=== PATIENT | male | born 1980 | race Caucasian/White ===

== ENCOUNTER → 2020-03-28 | Outpatient (CLI) | payer MEDICAID ==
[~2020-03-28] MED LIST: BACITRACIN 50,000 UNITS/VIAL ONE; DEXAMETHASONE 4MG/ML 1ML VIAL ONE; FENTANYL CITRATE/PF 50MCG/ML 2ML VIAL ONE; FISH GT; GLYCOPYRROLATE 0.2 MG/ML 2ML VIAL ONE; HYDROMORPHONE HCL/PF 2MG/ML (OR) ONE; IBUP-2030 PO; LISI-604 PO; MIDAZOLAM HCL 2 MG/2 ML VIAL ONE; MULT-1116 MT; NEOSTIGMINE METHYLSULFATE 1MG/ML 10 ML VIAL ONE; ONDANSETRON HCL 4MG/2ML INJ ONE; PROPOFOL 200MG/20ML VIAL IV ONE; ROCURONIUM BROMIDE 10MG/ML VIAL 5ML IV ONE; THROMBIN (BOVINE) 5000 UNITS/VIAL TOP ONE
== END | disposition home or self-care (01) ==
LOC: LAB 12:26
PROVIDERS: ATTEND Neurological Surgery
DX: Z20.822 Contact with and (suspected) exposure to COVID-19 (principal)
CPT/HCPCS: 87426

== ENCOUNTER 2020-03-31 05:30 | Inpatient (IN) | payer MEDICARE, MEDICAID ==
[2020-03-31] VITALS (57 sets, daily range): BP systolic 110–144; BP diastolic 31–89
[~2020-03-31] VITALS: Ht 205.7 cm; Wt 105.7 kg
[2020-03-31] MEDS: LACTATED RINGERS 1,000 ML IV SCH ×2 (06:35→06:36)
[2020-03-31 06:40] LABS: CLARITY URINE CLEAR (CLEAR); COLOR URINE YELLOW (YELLOW); KETONES URINE NEGATIVE (NEGATIVE); LEUKOCYTE ESTERASE URINE NEGATIVE (NEGATIVE); NITRITE URINE NEGATIVE (NEGATIVE); OCCULT BLOOD URINE NEGATIVE (NEGATIVE); PH URINE 6.5 (4.5-8.0); PROTEIN URINE NEGATIVE (NEGATIVE); SPECIFIC GRAVITY URINE 1.013 (1.005-1.030); UROBILINOGEN URINE 0.2 E.U./dL (0.2-1.0)
[2020-03-31] MEDS ORDERED: IBUP-2030 PO (06:40)
[2020-03-31] MEDS ORDERED: FISH GT (06:40)
[2020-03-31] MEDS ORDERED: MULT-1116 MT (06:40)
[2020-03-31] MEDS ORDERED: LISI20TA31 PO (06:40)
[2020-03-31 06:48] LABS: BASOPHILS % 0.4 % (0.0-2.0); HEMATOCRIT. 43.1 % (42.0-52.0); HEMOGLOBIN. 14.7 g/dL (14.0-18.0); LYMPHOCYTES % 39.5 % (20.0-50.0); MEAN CORPUSCULAR HEMOGLOBIN 30.1 pg (28.0-32.0); MEAN CORPUSCULAR VOLUME 88.6 fL (80.0-94.0); MEAN PLATELET VOLUME 8.7 fl (7.4-10.4); MONOCYTES % 8.2 % (2.0-8.0); NEUTROPHILS % 50.9 % (40.0-76.0); PLATELET 277 x1000/uL (130-400); RED BLOOD CELL COUNT 4.87 mill/uL (4.7-6.1); RED CELL DISTRIBUTION WIDTH 12.5 % (11.6-14.6)
[2020-03-31 06:49] LABS: CHLORIDE 107 mEq/L (98-107)
[2020-03-31 07:14] LABS: PARTIAL THROMBOPLASTIN TIME 28.2 sec (23.4-31.0); PROTHROMBIN TIME 10.8 sec (9.6-11.0)
[2020-03-31] MEDS ORDERED: HYDROMORPHONE HCL/PF 2MG/ML CPJ IV PRN (07:30)
[2020-03-31] MEDS ORDERED: MEPERIDINE HCL/PF 25MG/ML CPJ IV PRN (07:30)
[2020-03-31] MEDS ORDERED: MORPHINE SULFATE 4 MG/ML CPJ (NOT FOR IM USE) IV PRN ×2 (07:30→20:45)
[2020-03-31] MEDS ORDERED: ONDANSETRON HCL 4MG/2ML INJ IV PRN ×2 (07:30)
[2020-03-31] MEDS ORDERED: LABETALOL 5MG/ML SYR 20 MG/4 ML SYRINGE IV PRN (07:30)
[2020-03-31] MEDS: DEXT 5%/LACTATED RINGERS 1,000 ML IV SCH ×2 (09:42→18:48)
[2020-03-31] MEDS ORDERED: HYDROMORPHONE PCA 10MG/50ML IV PRN (09:45)
[2020-03-31] MEDS ORDERED: ONDANSETRON INJ IV PRN (09:45)
[2020-03-31] MEDS ORDERED: NALOXONE INJ IV PRN (09:45)
[2020-03-31] MEDS: DEXAMETHASONE 4MG/ML 1ML VIAL IV SCH ×2 (11:38→17:00)
[2020-03-31] MEDS: CEFAZOLIN 1000MG PREMIX 50 ML IV SCH ×2 (13:28→21:38)
[2020-03-31] MEDS ORDERED: CEFAZOLIN SODIUM 1000MG/VIAL IV SCH (14:00)
[2020-03-31] MEDS: NICARDIPINE 100 MG in SODIUM CHLORIDE 0.9% 60 ML IV PRN (14:36)
[2020-03-31] MEDS ORDERED: DIAZEPAM 2 MG TABLET PO NR (15:30)
[2020-03-31] MEDS ORDERED: MORPHINE SULFATE 2 MG/ML CPJ (NOT FOR IM USE) IV NR (20:45)
[2020-03-31] MEDS ORDERED: LORAZEPAM 2MG/ML CPJ IV PRN (23:15)
[2020-04-01] VITALS (90 sets, daily range): BP systolic 99–145; BP diastolic 52–91
[2020-04-01 00:18] LABS: CHLORIDE 106 mEq/L (98-107)
[2020-04-01] MEDS: DEXAMETHASONE 4MG/ML 1ML VIAL IV SCH ×3 (00:19→12:22)
[2020-04-01 00:28] LABS: PHOSPHORUS 2.5 mg/dL (2.5-4.9)
[2020-04-01 00:30] LABS: CREATINE KINASE 168 IU/L (39-308)
[2020-04-01] MEDS: ACETAMINOPHEN 650MG/20.3ML UDC PO PRN ×2 (00:57→18:57)
[2020-04-01 05:16] LABS: CHLORIDE 107 mEq/L (98-107)
[2020-04-01 05:24] LABS: HDL CHOLESTEROL 50 mg/dL (40-59); LDL CHOLESTEROL 119 mg/dL (5-100)
[2020-04-01 05:26] LABS: CREATINE KINASE 157 IU/L (39-308)
[2020-04-01 05:28] LABS: CREATINE KINASE MB FRACTION < 1.0 ng/mL (0.5-3.6)
[2020-04-01] MEDS: CEFAZOLIN 1000MG PREMIX 50 ML IV SCH ×2 (05:46→14:45)
[2020-04-01] MEDS: DEXT 5%/LACTATED RINGERS 1,000 ML IV SCH (05:47)
[2020-04-01 06:30] LABS: BASOPHILS % 0.1 % (0.0-2.0); HEMOGLOBIN. 14.5 g/dL (14.0-18.0); LYMPHOCYTES % 8.2 % (20.0-50.0); MEAN CORPUSCULAR HEMOGLOBIN 30.4 pg (28.0-32.0); MEAN CORPUSCULAR VOLUME 88.4 fL (80.0-94.0); MONOCYTES % 2.3 % (2.0-8.0); NEUTROPHILS % 89.4 % (40.0-76.0); PLATELET 274 x1000/uL (130-400); RED BLOOD CELL COUNT 4.75 mill/uL (4.7-6.1); RED CELL DISTRIBUTION WIDTH 12.8 % (11.6-14.6)
[2020-04-01] MEDS: PANTOPRAZOLE SODIUM 40 MG/VIAL IV SCH (08:00)
[2020-04-01] MEDS: LISINOPRIL 20MG TABLET PO SCH (08:01)
[2020-04-01] MEDS: NICARDIPINE 100 MG in SODIUM CHLORIDE 0.9% 60 ML IV PRN (08:43)
[2020-04-01] MEDS ORDERED: MAGNESIUM 2 G PREMIX 50 ML IV SCH (12:00)
[2020-04-01 15:34] LABS: CREATINE KINASE 140 IU/L (39-308)
[2020-04-01 15:35] LABS: CREATINE KINASE MB FRACTION < 1.0 ng/mL (0.5-3.6)
[2020-04-02] VITALS: BP 123/68
[2020-04-02] MEDS: ACETAMINOPHEN 650MG/20.3ML UDC PO PRN ×3 (01:03→12:03)
[2020-04-02 04:00] VITALS: BP 122/67
[2020-04-02 08:00] VITALS: BP 120/72
[2020-04-02] MEDS: PANTOPRAZOLE SODIUM 40 MG/VIAL IV SCH (08:50)
[2020-04-02] MEDS ORDERED: HYDR-4001 MT (08:52)
[2020-04-02] MEDS: LISINOPRIL 20MG TABLET PO SCH (08:55)
[2020-04-02] MEDS ORDERED: DOCUSATE SODIUM 100MG CAPSULE PO SCH (09:00)
[2020-04-02 12:05] VITALS: BP 120/72
[2020-04-02 13:32] VITALS: BP 120/72
== END 2020-04-02 12:28 | disposition home or self-care (01) | DRG 473 ==
LOC: OR 05:30 → 5EST 05:31 → EDUNIT# 07:00 → 5EST 09:39 → 6EST 04-01 22:30
PROVIDERS: ADMIT Neurological Surgery; ATTEND Internal Medicine
PROC: 0RG10A0 Fusion of Cervical Vertebral Joint with Interbody Fusion Device, Anterior Approach, Anterior Column, Open Approach (ICD-10-PCS; principal; 2020-03-31)
PROC: 0RB30ZZ Excision of Cervical Vertebral Disc, Open Approach (ICD-10-PCS; 2020-03-31)
DX: M47.22 Other spondylosis with radiculopathy, cervical region (principal); M48.02 Spinal stenosis, cervical region; I10 Essential (primary) hypertension
CPT/HCPCS: 36415; 71045; 72040; 72141; 76000; 80048; 80053; 80061; 81003; 82550; 82553; 83036; 83735; 84100; 84484; 85025; 85379; 86850; 86900; 93005; 95863; 95925; 95926; 95928; 95929; 95940; 97116; 97162; 97166; 97530; 97535; C1713; C9113; J0690; J1100; J1170; J2060; J2250; J2270; J2405; J2704; J2710; J3010; J3475; J3490; J7050; J7121; L0172; C1762

== ENCOUNTER 2020-11-07 13:17 | Emergency (ER) | payer MEDICARE, MEDICAID ==
[~2020-11-07] VITALS: Ht 175.3 cm; Wt 100.0 kg
[~2020-11-07 13:17] MED LIST changes: -BACITRACIN 50,000 UNITS/VIAL ONE; -DEXAMETHASONE 4MG/ML 1ML VIAL ONE; -FENTANYL CITRATE/PF 50MCG/ML 2ML VIAL ONE; -GLYCOPYRROLATE 0.2 MG/ML 2ML VIAL ONE; +HYDR-4001 MT; -HYDROMORPHONE HCL/PF 2MG/ML (OR) ONE; -IBUP-2030 PO; -LISI-604 PO; +LISI20TA31 PO; -MIDAZOLAM HCL 2 MG/2 ML VIAL ONE; -NEOSTIGMINE METHYLSULFATE 1MG/ML 10 ML VIAL ONE; -ONDANSETRON HCL 4MG/2ML INJ ONE; -PROPOFOL 200MG/20ML VIAL IV ONE; -ROCURONIUM BROMIDE 10MG/ML VIAL 5ML IV ONE; -THROMBIN (BOVINE) 5000 UNITS/VIAL TOP ONE
[2020-11-07] MEDS ORDERED: ONDANSETRON HCL 4MG/2ML INJ IV STA (14:01)
[2020-11-07] MEDS ORDERED: MORPHINE SULFATE 4 MG/ML CPJ (NOT FOR IM USE) IV STA (14:01)
[2020-11-07] MEDS ORDERED: SODIUM CHLORIDE 0.9% 1,000 ML IV ONE (14:15)
[2020-11-07 15:22] LABS: BASOPHILS % 0.3 % (0.0-2.0); CHLORIDE 105 mEq/L (98-107); EOSINOPHILS % 0.5 % (0.0-5.0); HEMATOCRIT. 42.9 % (42.0-52.0); HEMOGLOBIN. 14.9 g/dL (14.0-18.0); MEAN CORPUSCULAR HEMOGLOBIN 30.3 pg (28.0-32.0); MEAN CORPUSCULAR VOLUME 87.4 fL (80.0-94.0); MEAN PLATELET VOLUME 8.4 fl (7.4-10.4); MONOCYTES % 5.7 % (2.0-8.0); NEUTROPHILS % 78.5 % (40.0-76.0); PLATELET 362 x1000/uL (130-400); RED BLOOD CELL COUNT 4.91 mill/uL (4.7-6.1); RED CELL DISTRIBUTION WIDTH 13.1 % (11.6-14.6)
[2020-11-07 15:26] LABS: PROTHROMBIN TIME 10.8 sec (9.6-11.0)
[2020-11-07] MEDS ORDERED: GADOTERATE MEGLUMINE 5 MMOL/10 ML VIAL IV ONE (16:07)
[2020-11-07 16:26] LABS: CLARITY URINE CLEAR (CLEAR); COLOR URINE YELLOW (YELLOW); KETONES URINE NEGATIVE (NEGATIVE); LEUKOCYTE ESTERASE URINE NEGATIVE (NEGATIVE); NITRITE URINE NEGATIVE (NEGATIVE); OCCULT BLOOD URINE NEGATIVE (NEGATIVE); PROTEIN URINE NEGATIVE (NEGATIVE); SPECIFIC GRAVITY URINE 1.016 (1.005-1.030)
[2020-11-07] MEDS ORDERED: MORPHINE SULFATE 10 MG/ML CPJ IV ONE (18:00)
[2020-11-07] MEDS ORDERED: KETOROLAC 15MG/ML VIAL IV ONE (18:30)
[2020-11-07 19:01] VITALS: BP 135/69
[2020-11-07] MEDS ORDERED: HYDR-4001 MT (19:07)
[2020-11-07] MEDS ORDERED: KETO10TA2 MT (19:09)
[2020-11-07] MEDS ORDERED: CYCL10TA7 MT (19:12)
== END 2020-11-07 19:21 | disposition home or self-care (01) ==
LOC: ER 13:17
DX: M54.50 Low back pain, unspecified (principal); I10 Essential (primary) hypertension; Z79.899 Other long term (current) drug therapy
CPT/HCPCS: 36415; 72158; 80053; 81003; 85025; 85610; 96361; 96374; 96375; 99284; A9577; J1885; J2270; J2405; J7030